=== PATIENT | male | born 1975 | race African-American/Black ===

== ENCOUNTER 2023-08-28 21:55 | Emergency (ER) | payer OTHER ==
[2023-08-28 22:57] LABS: ALT (SGPT) 17 U/L (8-55); AST (SGOT) 16 U/L (5-34); Albumin 3.3 g/dL (3.5-5.0); Alkaline Phosphatase 100 U/L (40-110); Anion Gap 14 mmol/L (10-20); BUN (Urea Nitrogen) 19 mg/dL (8.9-20.6); Bilirubin, Total 1.2 mg/dL (0.2-1.2); Calc. Creatinine Clearance 0 mL/min (70-130); Calcium 8.8 mg/dL (7.8-10.44); Carbon Dioxide 27 mmol/L (22-29); Chloride 97 mmol/L (98-107); Estimated GFR 73; Globulin 4.4 g/dL (2.4-3.5); Glucose 255 mg/dL (70-105); Potassium 3.6 mmol/L (3.5-5.1); Protein, Total 7.7 g/dL (6.0-8.3); Sodium 134 mmol/L (136-145)
[2023-08-28] MEDS ORDERED: Sodium Chloride 0.9% 100 ML ONE (23:00)
[2023-08-28] MEDS ORDERED: cefTRIAXone (ROCEPHIN) 1 GM VIAL ONE (23:00)
[2023-08-28 23:08] LABS: Hemoglobin 9.3 g/dL (14.0-18.0); Red Blood Cell (RBC) Count 3.54 mill/uL (4.70-6.10); White Blood Cell (WBC) Count 8.1 10x3/uL (4.8-10.8)
[2023-08-28 23:09] LABS: #Lymphocytes 1.2 thou/uL (1.20-3.40); #Monocytes 0.8 thou/uL (0.11-0.59); %Basophils 0.3 % (0.0-1.0); %Eosinophils 0.1 % (0.0-10.0); %Monocytes 10.2 % (0.0-10.0); %Neutrophils 74.4 % (42.0-75.0); Hematocrit 29.5 % (42.0-52.0); Manual Diff?? NO; Mean Corpuscular HGB CONC 31.5 g/dL (32.0-36.0); Mean Corpuscular Hemoglobin 26.3 pg (27.0-31.0); Mean Corpuscular Volume 83.4 fl (78.0-98.0); Mean Platelet Volume 8.1 fL (7.4-10.4); Platelet Count 247 10x3/uL (130-400); RBC Distribution Width 13.5 % (11.5-14.5)
== END 2023-08-29 02:09 | disposition short-term general hospital (02) ==
LOC: NAV ERS 21:55
DX: E11.621 Type 2 diabetes mellitus with foot ulcer (principal)
CPT/HCPCS: 36415; 80053; 83605; 85025; 87040; 87070; 87077; 87149; 87205; 96365; J0696; J3490